=== PATIENT | male | born 1990 | race Two or more races ===

== ENCOUNTER 2023-02-04 22:27 | Emergency (ER) | payer OTHER ==
[~2023-02-04] VITALS: Ht 170.2 cm; Wt 66.4 kg
[2023-02-04 22:28] VITALS: BP 138/88
[2023-02-04] MEDS ORDERED: LIDOCAINE 1% 10 ML VIAL SQ ONE (23:30)
[2023-02-04] MEDS ORDERED: ACETAMINOPHEN 500 MG TABLET PO ONE (23:30)
[2023-02-04] MEDS ORDERED: CEPHALEXIN MONOHYDRATE 500 MG CAPSULE PO ONE (23:30)
[2023-02-04] MEDS ORDERED: DOXY-354 PO (23:58)
[2023-02-04] MEDS ORDERED: IBUP-1554 PO (23:58)
[2023-02-04] MEDS ORDERED: CEPH-558 PO (23:58)
== END 2023-02-05 00:14 | disposition home or self-care (01) ==
LOC: EMS 22:27
DX: L02.212 Cutaneous abscess of back [any part, except buttock and flank] (principal)
CPT/HCPCS: 99283; 10060; J3490